=== PATIENT | male | born 1960 | race African-American/Black ===

== ENCOUNTER 2018-09-15 21:07 | Emergency (ER) | payer BC ==
[~2018-09-15] VITALS: Ht 182.9 cm; Wt 77.1 kg
[~2018-09-15 21:07] MED LIST: IBUPROFEN600 MG ORAL; NORCO 5-325 TA1 EACH ORAL
[2018-09-15] MEDS ORDERED: hiv med (21:41)
--- NOTE | 2018-09-15 21:42 | NUR ---
ED Nurse Note: Pt arrived ED from home, c/o left groin area pain for 2 days. Pt is A/O X 4. Vital signs stable at this time, waiting for orders.
--- NOTE | 2018-09-15 21:57 | Emergency Room Report ---
History of Present Illness General Chief Complaint: Lower Extremity Injury Source: Patient Present Illness HPI This is a 58-year-old male with no significant aspiration. He presents with chief complaint of left groin pain. Onset for 4-5 days now. No trauma. He has pain and numbness down his left leg. No fever chills but no nausea no vomiting. No fever chills. Pain is 7 out of 10. Nothing made it better. Nothing made it worse. Allergies: Coded Allergies: TOMATO (Verified Allergy, Mild, Itching, 12/04/14) Eye itch and tearing Patient History Past Medical History: see triage record, old chart reviewed Past Surgical History: none Pertinent Family History: none Social History: Denies: smoking Immunizations: other Reviewed Nursing Documentation: PMH: Agreed; PSxH: Agreed Nursing Documentation-PMH Past Medical History: No History, Except For Hx Cardiac Problems: No Hx Hypertension: No Hx Pacemaker: No Hx Asthma: No Hx COPD: No Hx Diabetes: No Hx Cancer: No - HIV Hx Gastrointestinal Problems: No Hx Dialysis: No Hx Neurological Problems: No Hx Cerebrovascular Accident: No Hx Seizures: No Review of Systems Eye: Denies: eye pain, blurred vision ENT: Denies: ear pain, nose congestion, throat swelling Respiratory: Denies: cough, shortness of breath Cardiovascular: Denies: chest pain, palpitations Gastrointestinal: Denies: abdominal pain, diarrhea, nausea, vomiting Musculoskeletal: Reports: joint pain, muscle pain; Denies: back pain Skin: Denies: rash Neurological: Denies: headache, numbness Endocrine: Denies: increased thirst, increased urine Hematologic/Lymphatic: Denies: easy bruising All Other Systems: negative except mentioned in HPI Physical Exam Vital Signs Date Time Temp Pulse Resp B/P (MAP) Pulse Ox O2 Delivery O2 Flow Rate FiO2 09/15/18 21:37 99.1 73 16 147/79 94 Room Air vitals normal Sp02 EP Interpretation: reviewed, normal General Appearance: well appearing, no apparent distress, alert Head: normocephalic, atraumatic Eyes: bilateral eye PERRL, bilateral eye EOMI ENT: hearing grossly normal, normal pharynx Neck: full range of motion, supple, no meningismus Respiratory: chest non-tender, lungs clear, normal breath sounds Cardiovascular #1: regular rate, rhythm, no murmur Gastrointestinal: normal bowel sounds, non tender, no mass, no organomegaly, no bruit, non-distended Genitourinary: other - TTP over left inguinal area. no palpable mass. no abscess. Musculoskeletal: back normal, gait/station normal, normal range of motion Psychiatric: mood/affect normal Skin: warm/dry Medical Decision Making Diagnostic Impression: Primary Impression: Groin strain Qualified Codes: S76.212A - Strain of adductor muscle, fascia and tendon of left thigh, initial encounter ER Course Patient presents with a groin strain. There is no obvious hernia. No abscess. No evidence of any trauma. CT scan showed irregular prostate. Patient said he does have prostate problem and his doctor is monitoring this. CT/MRI/US Diagnostic Results CT/MRI/US Diagnostic Results : Imaging Test Ordered: CT abdomen and pelvis Impression Read by radiologist. Large heterogeneous prostate with calcification. Right renal cyst. No stone. No obstruction. Last Vital Signs Date Time Temp Pulse Resp B/P (MAP) Pulse Ox O2 Delivery O2 Flow Rate FiO2 09/15/18 21:37 99.1 73 16 147/79 94 Room Air Status: improved Disposition: HOME, SELF-CARE Condition: Stable Scripts Ibuprofen* (MOTRIN*) 600 Mg Tablet 600 MG ORAL THREE TIMES A DAY, #30 TAB 0 Refills Prov: Bernardino Brush MD 09/15/18 Hydrocodone/Acetaminophen 5-325* (HYDROCODONE/ACETAMINOPHEN 5-325*) 1 Each Tablet 1 TAB ORAL Q6H PRN for For Pain, #15 TAB 0 Refills Prov: Bernardino Brsuh MD 09/15/18 Additional Instructions: Follow-up with your doctor in 7 days. If not better, may need further workup like an MRI. Return if worse. Bernadrino Brush MD Sep 15, 2018 21:57
[2018-09-15] MEDS ORDERED: HYDROcodone/Acetamin 5/325 tab ORAL ONE (22:15)
[2018-09-15] MEDS ORDERED: IBUPROFEN600 MG ORAL (22:46)
[2018-09-15] MEDS ORDERED: HYDROCODON-ACE1 EA15 ORAL (22:46)
[2018-09-15 23:00] VITALS: BP 143/75
[2018-09-15 23:05] LABS: APPEARANCE,URINE CLEAR; BILIRUBIN, URINE 1+ (NEGATIVE); GLUCOSE, URINE (UA) NEGATIVE (NEGATIVE); KETONES,URINE 1+ (NEGATIVE); LEUKOCYTE ESTERASE ,URINE 1+ (NEGATIVE); NITRITE,URINE NEGATIVE (NEGATIVE); PH,URINE 5 (4.5-8.0); PROTEIN,URINE 2+ (NEGATIVE); UROBILINOGEN,URINE 1 MG/DL (0.0-1.0)
[2018-09-15 23:06] LABS: COLOR,URINE YELLOW
--- NOTE | 2018-09-15 23:26 | NUR ---
ER DISCHARGE NOTE: Patient is cleared to be discharged per Dr. Brush. Pain meds given as ordered, crutches provided. Pt is aox4 on room air with stable vital signs. Pt was given dc and prescription instructions and was able to verbalize understanding. Pt's ID band removed. pt is able to ambulate well with crutches and took all belongings. Accompanied by his family.
--- NOTE | 2018-09-16 11:18 | Diagnostic Imaging Report ---
Indication: Abdominal pain, left groin pain Technique: Spiral acquisitions obtained through the abdomen and pelvis. No oral contrast utilized, per emergency room physician request No IV contrast utilized, per referring physician request.. Multiplanar reconstructions were generated. Total dose length product 827.15 mGycm. CTDIvol(s) 14.12 mGy. Dose reduction achieved using automated exposure control Comparison: None Findings: There are scattered colonic diverticula. No evidence of diverticulitis. The appendix is not inflamed visualized, but no findings to suggest acute appendicitis are evident. No small bowel distention. Stomach is filled with fluid. Distal esophagus is unremarkable. The duodenum is unremarkable. No free or loculated intraperitoneal gas or fluid is evident. Lack of IV contrast limits assessment of solid organs. The liver, gallbladder, bile ducts, pancreas, spleen, adrenals are unremarkable. There is nonspecific bilateral perinephric fat stranding, right greater than left. Multiple cysts are seen in the lower pole of the right kidney. There are bilateral subcentimeter low-attenuation renal lesions which are too small to characterize, most likely benign simple cysts. 2 very low-attenuation lesions, one in each kidney, could also represent tiny angiomyolipomas. The bladder is nondistended. Surgical clips or metallic foreign bodies versus calcifications are seen in the prostate. The included lung bases are clear. The bones demonstrate degenerative spondylosis changes of the lumbosacral junction. Impression: Nonspecific bilateral perinephric fat stranding, of uncertain significance No acute abnormality Colonic diverticulosis. No evidence of diverticulitis Right lower pole renal cysts. Subcentimeter low-attenuation renal lesions which are too small to characterize, most likely benign simple cysts. No further follow-up necessary. There may also be small bilateral angiomyolipomas Metallic foreign bodies versus dense calcifications within the prostate, which is enlarged Degenerative spondylosis incidentally noted This agrees with the preliminary interpretation provided overnight by [facility]. The CT scanner at [facility] is accredited by the [employer] and the scans are performed using protocols designed to limit radiation exposure to as low as reasonably achievable to attain images of sufficient resolution adequate for diagnostic evaluation.
== END 2018-09-15 23:00 | disposition home or self-care (01) ==
LOC: EMR 22:00
DX: S76.212A Strain of adductor muscle, fascia and tendon of left thigh, initial encounter (principal); X58.XXXA Exposure to other specified factors, initial encounter; Y92.9 Unspecified place or not applicable; Z91.018 Allergy to other foods; B20 Human immunodeficiency virus [HIV] disease; N20.0 Calculus of kidney; M47.9 Spondylosis, unspecified; K57.90 Diverticulosis of intestine, part unspecified, without perforation or abscess without bleeding
CPT/HCPCS: 74176; 81003; 99284